=== PATIENT | male | born 1970 | race Caucasian/White ===

== ENCOUNTER 2020-09-04 20:16 | Emergency (ER) | payer SELFPAY ==
[~2020-09-04] VITALS: Ht 175.3 cm; Wt 73.5 kg
--- NOTE | 2020-09-04 20:30 | NUR ---
pt ambulated steady to room
[2020-09-04 21:18] VITALS: BP 146/90
--- NOTE | 2020-09-04 21:30 | NUR ---
pt refused d/c instructions. denies psych help. pt states he has safe place to go to with dad, and he lives close to hospital. pt declined taxi voucher. pt steady ambulating. vss
== END 2020-09-04 21:32 | disposition home or self-care (01) ==
LOC: ED 20:46
DX: F23 Brief psychotic disorder (principal); F22 Delusional disorders; F17.210 Nicotine dependence, cigarettes, uncomplicated; R00.0 Tachycardia, unspecified
CPT/HCPCS: 99284; 99406

== ENCOUNTER 2020-09-26 05:46 | Emergency (ER) | payer SELFPAY ==
[~2020-09-26] VITALS: Ht 175.3 cm; Wt 73.5 kg
[2020-09-26 05:50] VITALS: BP 176/100
--- NOTE | 2020-09-26 06:11 | NUR ---
ERP AT BEDSIDE
--- NOTE | 2020-09-26 06:31 | NUR ---
Patient given discharge instructions and they have confirmed that they understand the instructions. Patient ambulatory with steady gait.
== END 2020-09-26 06:33 | disposition home or self-care (01) ==
LOC: ED 06:30
DX: F23 Brief psychotic disorder (principal); J34.0 Abscess, furuncle and carbuncle of nose; F17.210 Nicotine dependence, cigarettes, uncomplicated
CPT/HCPCS: 99283